=== PATIENT | male | born 1995 | race Asian ===

== ENCOUNTER 2021-10-04 07:37 | Outpatient (REF) | payer MEDICARE, MEDICAID, SELFPAY ==
[2021-10-04 11:08] LABS: MANUAL DIFF FLAG NO
[2021-10-04 11:24] LABS: Basophils Percent Auto 0.5 % (0-2); Eosinophils Absolute Auto 0.2 X10*3/uL (0.0-0.4); Eosinophils Percent Auto 3.2 % (0-4); Hematocrit 45.5 % (42.0-52.0); Hemoglobin 15.3 g/dl (14.0-18.0); Imm Gran Abs Auto 0.01 X10*3/uL (0.00-0.03); Imm Gran Pct Auto 0.2 % (0.0-0.4); Lymphocytes Absolute Auto 2.2 X10*3/uL (1.2-4.9); Lymphocytes Percent Auto 37.9 % (20-40); Mean Corpuscular HGB Conc 33.6 g/dl (31.0-36.0); Mean Corpuscular Volume 89.2 fL (80.0-98.0); Mean Platelet Volume 10.5 fL (9.4-12.4); Monocytes Absolute Auto 0.4 X10*3/uL (0.1-1.2); Monocytes Percent Auto 6.7 % (2-11); Neutrophils Absolute Auto 2.9 x10*3/uL (2.0-8.3); Neutrophils Percent Auto 51.5 % (45-73); Platelet Count 234 X10*3/uL (160-400); Red Cell Distribution Width 12.8 % (11.0-16.0); White Blood Count 5.7 X10*3/uL (4.8-10.8)
[2021-10-04 12:05] LABS: T4 Thyroxine 6.2 ug/dL (4.5-12.0); Thyroid Stimulating Hormone 1.24 uIU/mL (0.32-4.0)
[2021-10-04 12:11] LABS: Alanine Aminotransferase 17 U/L (0-40); Aspartate Amino Transferase 17 U/L (5-37); Cholesterol 167 mg/dL; HDL Cholesterol 52 mg/dL; LDL Cholesterol Calculated 103 mg/dl; Triglycerides 60 mg/dL
[2021-10-05 11:02] LABS: Triiodothyronine T3 Total 107 ng/dL (76-181)
== END 2021-10-04 07:38 | disposition home or self-care (01) ==
LOC: HO.HMGCLDS 07:37
PROVIDERS: PCP Internal Medicine; Visit Provider Neuromusculoskeletal Medicine, Sports Medicine
DX: Z00.00 Encounter for general adult medical examination without abnormal findings (principal); R51.9 Headache, unspecified
CPT/HCPCS: 36415; 80061; 84436; 84443; 84450; 84460; 84480; 85025

== ENCOUNTER 2021-10-10 08:24 | Outpatient (REF) | payer MEDICARE, MEDICAID, SELFPAY ==
--- NOTE | ~2021-10-10 | XR_ITS ---
EXAMINATION: XR CHEST CLINICAL INFORMATION: Shortness of breath COMPARISON: None TECHNIQUE: 2 views of the chest were obtained. FINDINGS: No significant abnormality is noted involving the heart, lungs, mediastinum, bony thorax or soft tissues. XR/XR chest 2V IMPRESSION: Unremarkable examination.
== END 2021-10-10 08:25 | disposition home or self-care (01) ==
LOC: HO.XRAY 08:24
PROVIDERS: PCP Internal Medicine; Visit Provider Neuromusculoskeletal Medicine, Sports Medicine
DX: R06.02 Shortness of breath (principal)
CPT/HCPCS: 71046

== ENCOUNTER 2022-10-23 08:40 | Outpatient (REF) | payer MEDICARE, SELFPAY ==
[2022-10-23 11:23] LABS: MANUAL DIFF FLAG NO
[2022-10-23 11:30] LABS: Basophils Percent Auto 0.6 % (0-2); Eosinophils Absolute Auto 0.1 X10*3/uL (0.0-0.4); Eosinophils Percent Auto 1.9 % (0-4); Hematocrit 45.2 % (42.0-52.0); Hemoglobin 15.4 g/dl (14.0-18.0); Imm Gran Abs Auto 0.01 X10*3/uL (0.00-0.03); Imm Gran Pct Auto 0.2 % (0.0-0.4); Lymphocytes Absolute Auto 1.9 X10*3/uL (1.2-4.9); Lymphocytes Percent Auto 35.9 % (20-40); Mean Corpuscular HGB Conc 34.1 g/dl (31.0-36.0); Mean Corpuscular Hemoglobin 30.2 pg (27.0-33.0); Mean Corpuscular Volume 88.6 fL (80.0-98.0); Mean Platelet Volume 10.3 fL (9.4-12.4); Monocytes Absolute Auto 0.3 X10*3/uL (0.1-1.2); Monocytes Percent Auto 6.1 % (2-11); Neutrophils Absolute Auto 2.9 x10*3/uL (2.0-8.3); Neutrophils Percent Auto 55.3 % (45-73); Platelet Count 273 X10*3/uL (160-400); Red Cell Distribution Width 12.2 % (11.0-16.0); White Blood Count 5.2 X10*3/uL (4.8-10.8)
[2022-10-23 12:19] LABS: Alanine Aminotransferase 9 U/L (0-40); Albumin Level 4.5 g/dL (3.5-5.0); Alkaline Phosphatase 76 U/L (39-117); Anion Gap 12 (12-20); Aspartate Amino Transferase 14 U/L (5-37); Bilirubin Total 0.7 mg/dL (0.0-1.0); Blood Urea Nitrogen 13 mg/dL (9-16); Calcium 9.7 mg/dL (8.4-10.2); Carbon Dioxide 27 mmol/L (22-29); Chloride 108 mmol/L (96-108); Estimated Glomerular Filt Rate > 60; Glucose Random 89 mg/dL (60-115); Iron 125 mcg/dL (45-160); Percent Iron Saturation 38 % (15-50); Potassium 4.8 mmol/L (3.3-5.1); Sodium 142 mmol/L (135-145); Total Iron Binding Capacity 333 mcg/dL (228-428); Total Protein 7.1 g/dL (6.5-8.0); Unsaturated Iron Binding 208 ug/dL
[2022-10-23 12:20] LABS: Ferritin 58 ng/mL (20-250); Vitamin D 25-OH Total 13.6 ng/mL (>30)
[2022-10-25 14:13] LABS: Anti Nuclear Antibody Screen NEGATIVE (NEGATIVE)
[2022-10-26 09:13] LABS: Iodine, Serum/Plasma 46 mcg/L (52-109)
== END 2022-10-23 08:41 | disposition home or self-care (01) ==
LOC: HO.HMGCLDS 08:40
PROVIDERS: PCP Internal Medicine; Visit Provider Nurse Practitioner Family
DX: L00-L99 Diseases of the skin and subcutaneous tissue (principal)
CPT/HCPCS: 36415; 80053; 82306; 82728; 83540; 83789; 85025; 86038; 86039